=== PATIENT | male | born 1950 | race Caucasian/White ===

== ENCOUNTER 2023-03-24 10:38 | Emergency (ER) | payer OTHER, SELFPAY ==
--- OUTSIDE RECORDS SUMMARY | 2023-03-24 10:42 | XMS REPORT | Continuity of Care Document ---
:1950 Author Organization [facility] t Address [address] [place] [address] [address] [place] [address] Care Team Providers Name Role Phone Jacob Oconnor DO Primary Care Physician JACOB OCONNOR Attending Clinician Unavailable AKASH CRAIG Attending Clinician Unavailable RENE BELLO Attending Clinician Unavailable ARDEN PAPPAS Attending Clinician Unavailable [id number] Attending Clinician Unavailable Jacob Oconnor DO Attending Clinician Payers Payer Name Policy Type Policy Number Effective Date Expiration Date Tonio [place] P[place] 5 [id number] 2021 00:00:00 Problems Condition Condition Condition Status Onset Resolution Last Treating Co mments Source Name Details Category Date Date Treatment Clinician Date 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 LEFT EYE Family Family Disease Active Yuli history of history of 4-12 Se ybold diabetes diabetes 00:00: - mellitus mellitus 00 Spectrographic Analyst a (DM) (DM) l Family Family Disease Active Yuli history of history of 4-12 Se ybold hyperlipid hyperlipid 00:00: - emia emia 00 Externa l DDD DDD Disease Active Yuli (degenerat (degenerat 4-12 Se ybold pablo disc pablo disc 00:00: - disease), disease), 00 Exte rna lumbar lumbar l History of History of Disease Active Overview : Yuli detached detached 07-30 Formattin Alcides ortega retina retina 00:00: g of this - repair repair 00 note Externa might be l different from the original. Eye surgeon-Lindsey Ruff Allergies, Adverse Reactions, Alerts This patient has no known allergies or adverse reactions. Social History Social Habit Start Date Stop Date Quantity Comments Source History of tobacco Cigarette Smoker Yuli Miranda use - External Sexual orientation Yuli Miranda - External Cigarettes smoked 2023-03-22 2023-03-22 Yuli Miranda current (pack per 00:00:00 00:00:00 - Exter nal day) - Reported History of Social 2023-03-22 2023-03-22 Yuli Miranda function 00:00:00 00:00:00 - External Cigarette 2023-03-22 2023-03-22 Yuli Miranda pack-years 00:00:00 00:00:00 - External Tobacco use and 2023-03-22 2023-03-22 Smokeless tobacco Ke cathryn Miranda exposure 00:00:00 00:00:00 non-user - External Alcohol intake 2023-03-22 2023-03-22 Ex-drinker Yuli Alcides ortega 00:00:00 00:00:00 (finding) - External Education 2021-09-30 2021-09-30 17 Yulialcides Gallegorobin 00:00:00 00:00:00 - External Sex [birth year] Yuli Se da silva 00:00:00 00:00:00 - External Smoking Status Start Date Stop Date Source Ex-smoker 2023-03-22 00:00:00 2023-03-22 00:00:00 Yuli galan - External Medications Ordered Filled Start Stop Current Ordering Indication Dosage Frequency Signature Comments Components Source Medication Medication Date Date Medication? Clinician (SIG) Name Name Cholecalcif 2022-06 Yes 1000U Take 1,000 Yuli jaden 0-02 units by Ruben (D3-1000) 09:48: mouth - 25 MCG 22 daily Externa (1000 UT) l oral Capsule Valacyclovi 2022-06 Yes [id number] 1000mg Take 1 Yuli r HCl 1 g 0-02 tablet Seybold oral Tablet 00:00: (1,000 mg - 00 total) by Externa mouth 3 l times daily. Gabapentin 2022-06 Yes [id number] 200mg Q.5D Take 2 Yuli 100 MG oral 0-02 capsules Seyb old Capsule 00:00: (200 mg - 00 total) by Externa mouth 2 l times daily as needed. Brinzolamid Yes PLACE 1 Hiram sey e 1 % 7-12 DROP EVERY Seybold ophthalmic 00:00: 12 HOURS - Suspension 00 IN BOTH Spectrographic Analyst a EYES l Krill Oil Yes [id number] 1{capsu Take 1 Yuli 1000 MG 4-15 le} capsule by Seybol d oral 00:00: mouth 2 - Capsule 00 times Externa daily l Cholecalcif Yes 1000U Take 1,000 Yuli jaden 4-12 units by Seybold (D3-1000) 10:45: mouth 25 MCG 16 daily (1000 UT) oral Capsule Krill Oil Yes Take by Kelse y 1000 MG 4-12 mouth Seybold oral 10:45: Capsule 16 Immunizations Ordered Immunization Filled Date Status Comments Sour ce Name Immunization Name Pneumococcal Vaccine, 2021-09-30 Completed Hiram sey Seybold Polysaccharide 00:00:00 Pneumococcal Vaccine, Unknown Completed Hiram sey Seybold Polysaccharide - External Vital Signs Vital Name Observation Time Observation Value Comments Source Systolic blood 2023-03-22 14:44:00 124 mm[Hg] Yuli Chávezybold - pressure External Diastolic blood 2023-03-22 14:44:00 72 mm[Hg] Stephanie y Seybold - pressure External Heart rate 2023-03-22 14:44:00 84 /min Yuli galan - External Body temperature 2023-03-22 14:44:00 36.61 Zulma Jesica kevin Seybold - External Respiratory rate 2023-03-22 14:44:00 18 /min Jesica kevin Seybold - External Body height 2023-03-22 14:44:00 175.3 cm Yuli galan - External Body weight 2023-03-22 14:44:00 71.215 kg Yuli S eybold - External BMI 2023-03-22 14:44:00 23.18 kg/m2 Yuli Elizalde eybold - External Oxygen saturation in 2023-03-22 14:44:00 97 /min Yuli Miranda - Arterial blood by External Pulse oximetry Systolic blood 2021-09-30 15:43:00 131 mm[Hg] Yuli Seybold pressure Diastolic blood 2021-09-30 15:43:00 73 mm[Hg] Kelse y Seybold pressure Heart rate 2021-09-30 15:43:00 89 /min Yuli Elizalde eybold Body temperature 2021-09-30 15:43:00 36.78 Zulma Jesica ey Seybold Respiratory rate 2021-09-30 15:43:00 14 /min Jesica kevin Seybold Body height 2021-09-30 15:43:00 175.3 cm Yuli Elizalde eybonavid Body weight 2021-09-30 15:43:00 74.39 kg WITH SHOES Yuli kevinbonavid BMI 2021-09-30 15:43:00 24.22 kg/m2 Yuli kevinbonavid Oxygen saturation in 2021-09-30 15:43:00 97 /min Yuli Miranda Arterial blood by Pulse oximetry Procedures This patient has no known procedures. Encounters Start End Encounter Admission Attending Care Care Encounter Source Date/Time Date/Time Type Type Clinicians Facility Department ID 2023-03-23 2023-03-23 Outpatient YULI OCONNOR [id number] Yuli 00:00:00 00:00:00 JACOB Seybol d 2023-03-22 2023-03-22 Outpatient YULI CRAIG [id number] Yuli 11:40:00 11:40:00 AKASH Seybol d 2023-03-22 2023-03-22 Outpatient YULI BELLO [id number] Yuli 09:45:00 09:45:00 RENE Seybol d 2022-05-06 2022-05-06 Outpatient YULI PAPPAS [id number] Yuli 00:00:00 00:00:00 LASUNDRA Lashondao ld 2021-10-03 2021-10-03 Outpatient YULI OCONNOR [id number] Yuli 00:00:00 00:00:00 JACOB means 2021-10-01 2021-10-01 Outpatient LAB90 YULI ANSARI [id number] Yuli 08:10:00 08:10:00 Kennedy means 2021-09-30 2021-09-30 Office Blue Oconnor [id number] Yuli 10:45:00 11:30:00 Visit Jacob Romeo [id number] Se da silva [id number] Results This patient has no known results.
--- NOTE | 2023-03-24 10:58 | ER ---
Nurse's Notes [facility] Name: Smooth Phoenix Age: 73 yrs Sex: Male : 1950 Arrival Date: 03/24/2023 Time: 10:38 Bed 13 Private MD: Diagnosis: Zoster with other complications;Left Eye swelling Presentation: 03/24 10:44 Chief complaint: Patient states: dx with shingles to left eye, pt states he was seen by aa5 eye doctor yesterday and reports increased swelling to left eyelids. Pt's family states "he is taking an oral antiviral, an antibiotic ointment, and some eyedrops already". 10:44 Coronavirus screen: At this time, the client does not indicate any symptoms associated aa5 with coronavirus-19. Ebola Screen: Patient denies travel to an Ebola-affected area in the 21 days before illness onset. Initial Sepsis Screen: Does the patient meet any 2 criteria? HR > 90 bpm. Does the patient have a suspected source of infection? Yes:. Risk Assessment: Do you want to hurt yourself or someone else? Patient reports no desire to harm self or others. Onset of symptoms was 2022. 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 - Social history:: Smoking status: Patient denies any tobacco usage or history of. Assessment: 10:44 Reassessment: Patient is alert, oriented x 3, equal unlabored respirations, skin aa5 warm/dry/pink. General: Appears comfortable. Vital Signs: 10:44 BP 137 / 109; Pulse 110; Resp 18 S; Temp 98.5(O); Pulse Ox 100% on R/A; aa5 11:05 BP 125 / 95; Pulse 100; Resp 18 S; Pulse Ox 98% on R/A; aa5 ED Course: 10:41 Patient arrived in ED. mg5 10:43 Estuardo Granger DO is Attending Physician. ms3 10:44 Arm band placed on. aa5 10:44 Patient has correct armband on for positive identification. aa5 10:51 Nany Sanchez, RN is Primary Nurse. nj1 10:54 Triage completed. aa5 10:56 Ras Oconnor DO is Referral Physician. ms3 11:05 No provider procedures requiring assistance completed. Patient did not have IV access aa5 during this emergency room visit. Administered Medications: No medications were administered Outcome: 10:57 Discharge ordered by MD. ms3 11:05 Discharged to home ambulatory, with significant other, aa5 11:05 Condition: stable 11:05 Discharge instructions given to patient, family, Instructed on discharge instructions, follow up and referral plans. Demonstrated understanding of instructions, follow-up care, 11:08 Patient left the ED. iw Signatures: Maryanne Santana, RN RN Elisabet Fernandes RN RN aa5 Estuardo Granger DO DO ms3 Nany Sanchez, RN RN nj Gracie Ramirez mg5 Corrections: (The following items were deleted from the chart) 10:55 10:44 Initial Sepsis Screen: Does the patient meet any 2 criteria? No. Patient's aa5 initial sepsis screen is negative. Does the patient have a suspected source of infection? No. Patient's initial sepsis screen is negative. aa5
--- NOTE | 2023-03-24 11:09 | EDPHYS ---
Physician Documentation [facility] Name: Smooth Phoenix Age: 73 yrs Sex: Male : 1950 Arrival Date: 03/24/2023 Time: 10:38 Bed 13 Private MD: ED Physician Estuardo Granger HPI: 03/24 11:00 This 73 yrs old Male presents to ER via Ambulatory with complaints of Facial Swelling, ms3 Shingles. 11:00 73-year-old male with past medical history of detached retina in the left eye presents ms3 with his for left eyelid swelling. Patient states he was recently diagnosed with shingles and is currently on valacyclovir. Patient saw his eye doctor, Dr. Tolbert yesterday and was given medication for his corneal lesions. Patient states his symptoms have improved since Wednesday when the rash developed. Patient denies pain at this time.. 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 - Social history:: Smoking status: Patient denies any tobacco usage or history of. ROS: 11:00 Constitutional: Negative for fever, and chills. Cardiovascular: Negative for chest ms3 pain, and palpitations. Respiratory: Negative for shortness of breath, cough, wheezing, and pleuritic chest pain, Abdomen/GI: Negative for abdominal pain, nausea, vomiting, diarrhea, and constipation, 11:00 MS/Extremity: Negative for injury and deformity, 11:00 Eyes: Positive for swelling, 11:00 Skin: Positive for rash, 11:00 All other systems are negative, Exam: 11:00 Constitutional: This is a well developed, well nourished patient who is awake, alert, ms3 and in no acute distress. Head/Face: Normocephalic, atraumatic. Neck: Trachea midline, no cervical lymphadenopathy. Supple, full range of motion without nuchal rigidity, or vertebral point tenderness. No Meningismus. Chest/axilla: Normal chest wall appearance and motion. Nontender with no deformity. Cardiovascular: Regular rate and rhythm with a normal S1 and S2. No gallops, murmurs, or rubs. Normal PMI, no JVD. No pulse deficits. Respiratory: Lungs have equal breath sounds bilaterally, clear to auscultation and percussion. No rales, rhonchi or wheezes noted. No increased work of breathing, no retractions or nasal flaring. Abdomen/GI: Soft, non-tender, with normal bowel sounds. No distension or tympany. No guarding or rebound. No evidence of tenderness throughout. 11:00 MS/ Extremity: Pulses equal, no cyanosis. Neurovascular intact. Full, normal range of motion. 11:00 Eyes: Periorbital structures: swelling, Extraocular movements: intact throughout, Conjunctiva: normal, Lids and lashes: Swelling of left upper eyelid. Vital Signs: 10:44 BP 137 / 109; Pulse 110; Resp 18 S; Temp 98.5(O); Pulse Ox 100% on R/A; aa5 11:05 BP 125 / 95; Pulse 100; Resp 18 S; Pulse Ox 98% on R/A; aa5 MDM: 10:56 Patient medically screened. ms3 11:00 Differential diagnosis: Shingles vs Preseptal cellulitis. Data reviewed: vital signs, ms3 nurses notes, and as a result, I will discharge patient. Historians other than the Patient: Spouse/Significant Other: Patient's . Counseling: I had a detailed discussion with the patient and/or guardian regarding the historical points, exam findings, and any diagnostic results supporting the discharge/admit diagnosis, the need for outpatient follow up, to return to the emergency department if symptoms worsen or persist or if there are any questions or concerns that arise at home. Special discussion: I discussed with the patient/guardian in detail that at this point there is no indication for admission to the hospital. It is understood, however, that if the symptoms persist or worsen the patient needs to return immediately for re-evaluation. ED course: Discussed current treatment plan with patient and instructed patient to continue his medications. Patient to follow-up as instructed by his primary care and eye physician. Patient is understand and agree with plan. All questions were answered. Return precautions discussed include worsening symptoms, or any other concerns. Administered Medications: No medications were administered Disposition Summary: 03/24/23 10:57 Discharge Ordered Notes: Location: Home ms3 Condition: Stable ms3 Diagnosis - Zoster with other complications ms3 - Left Eye swelling ms3 Followup: ms3 - With: Rsa Oconnor DO - When: 2 - 3 days - Reason: Recheck today's complaints Discharge Instructions: - Discharge Summary Sheet ms3 - Shingles ms3 Forms: - Medication Reconciliation Form ms3 - Thank You Letter ms3 - Antibiotic Education ms3 - Prescription Opioid Use ms3 - Patient Portal Instructions ms3 - Leadership Thank You Letter ms3 Signatures: Elisabet Fierro, RN RN aa5 Estuardo Granger DO DO ms3
[2023-03-24 11:12] VITALS: BP 137/109; TEMP 98.5; O2SAT 100
== END 2023-03-24 11:08 | disposition home or self-care (01) ==
LOC: ER 10:38
DX: B02.8 Zoster with other complications (principal); R22.9 Localized swelling, mass and lump, unspecified
CPT/HCPCS: 99282